=== PATIENT | male | born 1995 | race African-American/Black ===

== ENCOUNTER 2018-07-20 23:40 | Emergency (ER) | payer OTHER ==
[2018-07-21 00:15] VITALS: BP 124/64; PULSE 60; TEMP 98.7; BMI 32.5
[2018-07-21] MEDS ORDERED: IBUPROFEN 400 MG TABLET (FP) PO ONE ×2 (01:06→01:09)
[2018-07-21] MEDS ORDERED: LIDOCAINE HCL 1%, 10 MG/ML (50 mL VIAL) INF ONE (01:41)
[2018-07-21] MEDS ORDERED: LIDOCAINE HCL 2% (20ML MULTI-DOSE VIAL) NR ONE (01:42)
--- NOTE | 2018-07-21 02:43 | PDOC ---
History of Present Illness - General Chief Complaint: Injury Stated Complaint: FINGER INJURY Time Seen by Provider: 07/21/18 01:01 History Source: Patient Exam Limitations: No Limitations Past History - Past Medical History Allergies/Adverse Reactions: Allergies Allergy/AdvReac Type Severity Reaction Status Date / Time No Known Allergies Allergy Verified 07/21/18 00:13 Home Medications: Ambulatory Orders NK [No Known Home Medication] 07/21/18 - Suicide/Smoking/Psychosocial Hx Smoking History: Never smoked Have you smoked in the past 12 months: No Information on smoking cessation initiated: No Hx Alcohol Use: No Drug/Substance Use Hx: No *Physical Exam - Vital Signs Last Vital Signs Temp Pulse Resp BP Pulse Ox 98.7 F 60 18 124/64 99 07/21/18 00:13 07/21/18 00:13 07/21/18 00:13 07/21/18 00:13 07/21/18 00:13 - Physical Exam General Appearance: No: Apparent Distress Integumentary: positive: Other (+around 2 cm laceration to distal end of R middle finger, along palmar aspect, no FB noted, no tendon involvement, FROM of joints, sensation intact, no deformity to site) Moderate Sedation - Procedure Monitoring Vital Signs: Procedure Monitoring Vital Signs Temperature 98.7 F 07/21/18 00:13 Pulse Rate 60 07/21/18 00:13 Respiratory Rate 18 07/21/18 00:13 Blood Pressure 124/64 07/21/18 00:13 O2 Sat by Pulse Oximetry (%) 99 07/21/18 00:13 Procedures - Laceration/Wound Repair Right 3rd digit Wound Length: to 2.5 cm Wound Explored: clean, no foreign body present Wound's Depth, Shape: superficial Irrigated w/ Saline: Yes Betadine Prep: Yes Anesthesia: 1% Lidocaine Wound Debrided: moderate Wound Repaired With: Sutures Suture Size/Type: 5:0 Number of Sutures: 5 Layer Closure: No ED Treatment Course - RADIOLOGY Radiology Studies Ordered: Category Date Time Status FINGER(S) RIGHT [RAD] Stat Radiology 07/21/18 01:06 Taken - Medications Given in the ED: ED Medications Discontinued Medications Generic Name Dose Route Start Last Admin Trade Name Freq PRN Reason Stop Dose Admin Ibuprofen 800 mg 07/21/18 01:06 07/21/18 01:11 Motrin - PO 07/21/18 01:07 800 mg ONCE ONE Administration Lidocaine HCl 3 ml 07/21/18 01:41 07/21/18 01:43 Xylocaine 1% INF 07/21/18 01:42 3 ml ONCE ONE Administration Medical Decision Making - Medical Decision Making 23 y/o M with no sig pmh presents with injury to R middle finger after cutting it along sharp edge of [place] at work. Injury occurred around 10:50 PM. Patient is UTD on tetanus R finger xray shows no FB or fracture Laceration repaired Stable for dc 07/21/18 02:39 *DC/Admit/Observation/Transfer Diagnosis at time of Disposition: Laceration of finger Qualifiers: Encounter type: initial encounter Finger: middle finger Damage to nail status: without damage Foreign body presence: without foreign body Laterality: right Qualified Code(s): S61.212A - Laceration without foreign body of right middle finger without damage to nail, initial encounter - Discharge Dispostion Disposition: HOME Condition at time of disposition: Stable Decision to Admit order: No - Referrals - Patient Instructions Printed Discharge Instructions: DI for Laceration Repair -- [place] Additional Instructions: Thank you for choosing [facility]. It was a pleasure taking care of you. Keep wound clean and dry for the next 24 hours Return in 7-10 days to get sutures removed Return to the Emergency Department if your symptoms worsen or persist, you have fever, swelling of extremities, pustular discharge, redness, streaking or other concerning symptoms. - Post Discharge Activity
== END 2018-07-21 02:51 | disposition home or self-care (01) ==
LOC: JER 23:40
PROC: 0HQFXZZ Repair Right Hand Skin, External Approach (ICD-10-PCS; principal; 2018-07-20)
DX: S61.212A Laceration without foreign body of right middle finger without damage to nail, initial encounter (principal); W26.8XXA Contact with other sharp object(s), not elsewhere classified, initial encounter; Y93.89 Activity, other specified; Y92.512 Supermarket, store or market as the place of occurrence of the external cause; Y99.0 Civilian activity done for income or pay
CPT/HCPCS: 73140-TC-RT-FY; 99282-25